=== PATIENT | female | born 1980 | race Caucasian/White ===

== ENCOUNTER → 2018-11-02 | Outpatient (CLI) | payer BC ==
--- NOTE | 2018-11-06 09:30 | MM ---
Reason for exam: screening (asymptomatic). Last mammogram was performed 2 years and 4 months ago. History: Patient is nulliparous. Took hormonal contraceptives for 7 years beginning at age 18. Physical Findings: A clinical breast exam by your physician is recommended on an annual basis and results should be correlated with mammographic findings. MG 3D Screening Mammo W/Cad Bilateral CC and MLO view(s) were taken. Prior study comparison: June 20, 2016, bilateral MG 3d diag mammo w/cad SAM. The breast tissue is heterogeneously dense. This may lower the sensitivity of mammography. No significant changes when compared with prior studies. ASSESSMENT: Benign, BI-RAD 2 RECOMMENDATION: Routine screening mammogram of both breasts at age 41.
== END | disposition home or self-care (01) ==
LOC: RADMAMWWP 13:28
PROVIDERS: ATTEND Obstetrics & Gynecology
DX: Z12.31 Encounter for screening mammogram for malignant neoplasm of breast (principal)
CPT/HCPCS: 77063; 77067

== ENCOUNTER → 2020-11-20 | Outpatient (CLI) | payer BC ==
--- NOTE | 2020-11-23 11:35 | MM ---
Reason for exam: screening (asymptomatic). Last mammogram was performed 2 years and 1 month ago. History: Patient is nulliparous. Took hormonal contraceptives for 7 years beginning at age 18. Physical Findings: A clinical breast exam by your physician is recommended on an annual basis and results should be correlated with mammographic findings. MG 3D Screening Mammo W/Cad Bilateral CC and MLO view(s) were taken. Prior study comparison: November 02, 2018, bilateral MG 3d screening mammo w/cad. June 20, 2016, bilateral MG 3d diag mammo w/cad SAM. The breast tissue is heterogeneously dense. This may lower the sensitivity of mammography. Focal asymmetry upper central left breast zone C. This finding is changed when compared with previous exams. ASSESSMENT: Incomplete: need additional imaging evaluation, BI-RAD 0 RECOMMENDATION: Special view mammogram of the left breast. If lesion persists on supplemental views, image directed ultrasound is recommended. [facility] will attempt to contact patient to return for supplemental views and ultrasound if indicated.
== END | disposition home or self-care (01) ==
LOC: RADMAMWWP 08:50
PROVIDERS: ATTEND Obstetrics & Gynecology
DX: Z12.31 Encounter for screening mammogram for malignant neoplasm of breast (principal)
CPT/HCPCS: 77063; 77067

== ENCOUNTER → 2020-11-25 | Outpatient (CLI) | payer BC ==
--- NOTE | 2020-11-25 10:50 | MM ---
Reason for exam: additional evaluation requested from abnormal screening. Last mammogram was performed less than 1 month ago. History: Patient is nulliparous. Took hormonal contraceptives for 7 years beginning at age 18. Physical Findings: Nurse did not find any significant physical abnormalities on exam. MG 3D Work Up W/Cad LT Spot compression CC, spot compression MLO, and ML view(s) were taken of the left breast. Prior study comparison: November 20, 2020, bilateral MG 3d screening mammo w/cad. November 02, 2018, bilateral MG 3d screening mammo w/cad. There is no discrete abnormality including area of concern including area of concern. These results were verbally communicated with the patient and result sheet given to the patient on 11/25/20. ASSESSMENT: Probably benign, BI-RAD 3 RECOMMENDATION: Follow-up diagnostic mammogram of the left breast in 6 months.
== END | disposition home or self-care (01) ==
LOC: RADMAMWWP 08:56
PROVIDERS: ATTEND Obstetrics & Gynecology
DX: R92.2 Inconclusive mammogram (principal)
CPT/HCPCS: 77061; 77065

== ENCOUNTER → 2021-04-06 | Outpatient (CLI) | payer BC | END | disposition home or self-care (01) | LOC: LABWHC1 10:44 | PROVIDERS: ATTEND Otolaryngology | DX: J30.89 Other allergic rhinitis (principal) | CPT/HCPCS: 36415 ==

== ENCOUNTER → 2021-05-26 | Outpatient (CLI) | payer BC ==
--- NOTE | 2021-05-27 12:21 | MM ---
Reason for exam: follow-up at short interval from prior study. Last mammogram was performed 6 months ago. History: Patient is nulliparous. Took hormonal contraceptives for 7 years beginning at age 18. Physical Findings: Nurse did not find any significant physical abnormalities on exam. MG 3D Diag Mammo W/Cad LT CC and MLO view(s) were taken of the left breast. Prior study comparison: November 25, 2020, left breast MG 3d work up w/cad LT. November 20, 2020, bilateral MG 3d screening mammo w/cad. November 02, 2018, bilateral MG 3d screening mammo w/cad. June 20, 2016, bilateral MG 3d diag mammo w/cad SAM. The breast tissue is heterogeneously dense. This may lower the sensitivity of mammography. Central posterior asymmetric density unchanged for 6 months. Continued follow up recommended. These results were verbally communicated with the patient and result sheet given to the patient on 05/26/21. ASSESSMENT: Probably benign, BI-RAD 3 RECOMMENDATION: Follow-up diagnostic mammogram of both breasts in 6 months.
== END | disposition home or self-care (01) ==
LOC: RADMAMWWP 14:25
PROVIDERS: ATTEND Obstetrics & Gynecology
DX: R92.2 Inconclusive mammogram (principal)
CPT/HCPCS: 77061; 77065

== ENCOUNTER → 2021-12-15 | Outpatient (CLI) | payer BC ==
--- NOTE | 2021-12-15 14:39 | MM ---
Reason for Exam: Follow-up at short interval from prior study. Last mammogram was performed 1 year(s) and 1 month(s) ago. Patient History: Menarche at age 12. Patient has no children. Hormonal Contraceptives for 7 years from age 18 until age 25. Last menstrual period: 12/15/2021 Risk Values: Rosa Isela 5 year model risk: 0.7%. NCI Lifetime model risk: 12.1%. Prior Study Comparison: 11/02/2018 Bilateral Screening Mammogram, [facility]. 11/20/2020 Bilateral Screening Mammogram, [facility]. 11/25/2020 Left Diagnostic Mammogram, [facility]. 05/26/2021 Left Diagnostic Mammogram, [facility]. Tissue Density: The breast tissue is heterogeneously dense. This may lower the sensitivity of mammography. Findings: Analyzed By CAD. No evidence of architectural distortion or dominant mass. No suspicious grouped calcifications. Benign-appearing calcifications noted. Overall Assessment: Benign, BI-RAD 2 Management: Screening Mammogram of both breasts in 1 year. A clinical breast exam by your physician is recommended on an annual basis and results should be correlated with mammographic findings. This exam should not preclude additional follow-up of suspicious palpable abnormalities. Results were given to the patient verbally at the time of exam. Electronically signed and approved by: Ramírez Gonzalez M.D. Radiologis
== END | disposition home or self-care (01) ==
LOC: RADMAMWWP 14:05
PROVIDERS: ATTEND Obstetrics & Gynecology
DX: R92.1 Mammographic calcification found on diagnostic imaging of breast (principal)
CPT/HCPCS: 77062; 77066

== ENCOUNTER 2024-10-15 09:32 | Emergency (ER) | payer BC ==
[2024-10-15 10:12] LABS: Basophils # (A) 0.1 k/uL (0-0.2); Basophils % (A) 1 %; Eosinophils # (A) 0.1 k/uL (0-0.7); Eosinophils % (A) 2 %; HCT 44.4 % (34.0-46.0); HGB 14.4 gm/dL (11.4-16.0); Lymphocytes # (A) 1.2 k/uL (1.0-4.8); Lymphocytes % (A) 22 %; MCH 28.1 pg (25.0-35.0); MCHC 32.4 g/dL (31.0-37.0); MCV 86.6 fL (80.0-100.0); Mean Platelet Volume 7.8; Monocytes # (A) 0.3 k/uL (0-1.0); Monocytes % (A) 5 %; Neutrophils # (A) 3.8 k/uL (1.3-7.7); Neutrophils % (A) 68 %; Platelet Count 350 k/uL (150-450); RBC 5.13 m/uL (3.80-5.40); RDW 13.6 % (11.5-15.5); WBC 5.5 k/uL (3.8-10.6)
[2024-10-15 10:16] LABS: ALT 20 U/L (4-34); AST 21 U/L (14-36); African American GFR (CKD) >90 (>60 ml/min/1.73 sqM); Albumin 4.7 g/dL (3.5-5.0); Alkaline Phosphatase 43 U/L (38-126); Anion Gap 10 mmol/L; Blood Urea Nitrogen 12 mg/dL (7-17); Calcium 9.7 mg/dL (8.4-10.2); Carbon Dioxide 26 mmol/L (22-30); Chloride 101 mmol/L (98-107); Glucose 98 mg/dL (74-99); Magnesium 1.7 mg/dL (1.6-2.3); Non-African American GFR(CKD) >90 (>60 ml/min/1.73 sqM); Potassium 4.5 mmol/L (3.5-5.1); Sodium 137 mmol/L (137-145); Total Bilirubin 0.3 mg/dL (0.2-1.3); Total Protein 7.4 g/dL (6.3-8.2)
[2024-10-15 10:28] LABS: INR 0.9 (<1.2); Partial Thromboplastin Time 22.2 sec (22.0-30.0); Prothrombin Time 10.5 sec (10.0-12.5)
--- NOTE | 2024-10-15 10:29 | XR ---
EXAMINATION TYPE: XR chest 2V DATE OF EXAM: 10/15/2024 CLINICAL INDICATION: Female, 44 years old with history of Chest Pain, TECHNIQUE: Frontal and lateral views of the chest are obtained. COMPARISON: None FINDINGS: Overlying EKG leads are present. There is no focal air space opacity, pleural effusion, or pneumothorax seen. The cardiac silhouette size is within normal limits. The osseous structures ar e intact. IMPRESSION: No acute process. [facility], , 10/15/2024 10:26 AM
[2024-10-15 11:05] VITALS: TEMP 98
--- NOTE | 2024-10-15 12:10 | ED ---
Chest Pain HPI - General Chief Complaint: Chest Pain Stated Complaint: chest pain,palpitations Time Seen by Provider: 10/15/24 09:37 Source: patient, RN notes reviewed Mode of arrival: ambulatory Limitations: no limitations - History of Present Illness Initial Comments: 44-year-old female presents emergency department chief complaint of palpitations. Patient states has been having on and off symptoms. Patient states that she is not having complaints of chest pain at this time denies any prior cardiac disease does have some family history patient has any shortness of breath no headache or dizziness. Patient offers no other complaints. Patient does admit that she is currently dieting and is concerned about possible episodic imbalance, dehydration. - Related Data Home Medications Medication Instructions Recorded Confirmed Cetirizine HCl [Zyrtec] 10 mg PO DAILY 10/15/24 10/15/24 Cholecalciferol [Vitamin D3 (125 125 mcg PO DAILY 10/15/24 10/15/24 Mcg = 5000 Iu)] Fluticasone Nasal Ozone [Flonase 2 spray EA NOSTRIL DAILY 10/15/24 10/15/24 Nasal Ozone] buPROPion XL [Wellbutrin XL] 300 mg PO DAILY 10/15/24 10/15/24 Allergies Allergy/AdvReac Type Severity Reaction Status Date / Time Sulfa (Sulfonamide Allergy Rash/Hives Verified 10/15/24 10:36 Antibiotics) sulfamethoxazole Allergy Rash/Hives Verified 10/15/24 10:36 [From Bactrim] trimethoprim [From Bactrim] Allergy Rash/Hives Verified 10/15/24 10:36 Review of Systems ROS Statement: Those systems with pertinent positive or pertinent negative responses have been documented in the HPI. ROS Other: All systems not noted in ROS Statement are negative. EKG Findings - EKG Comments: EKG Findings:: Rate sinus rhythm rate of 86 AR 152 QRS 85 QT/QTc 333/373 - EKG Results: EKG: interpreted by [facility] Past Medical History Past Medical History: No Reported History History of Any Multi-Drug Resistant Organisms: None Reported Past Surgical History: No Surgical Hx Reported Past Psychological History: Anxiety Smoking Status: Former smoker Past Alcohol Use History: None Reported Past Drug Use History: None Reported General Exam Limitations: no limitations General appearance: alert, in no apparent distress Head exam: Present: atraumatic, normocephalic, normal inspection Eye exam: Present: normal appearance, PERRL, EOMI. Absent: scleral icterus, conjunctival injection, periorbital swelling ENT exam: Present: normal exam, normal oropharynx, mucous membranes moist Neck exam: Present: normal inspection, full ROM. Absent: tenderness, meningismus, lymphadenopathy Respiratory exam: Present: normal lung sounds bilaterally. Absent: respiratory distress, wheezes, rales, rhonchi, stridor Cardiovascular Exam: Present: regular rate, normal rhythm, normal heart sounds. Absent: systolic murmur, diastolic murmur, rubs, gallop, clicks Course Vital Signs 10/15/24 10/15/24 10/15/24 09:40 10:12 11:00 Temperature 98.4 F 98 F Pulse Rate 83 82 Pulse Rate [ 82 Apical] Respiratory 20 16 Rate Blood Pressure 151/84 120/90 O2 Sat by Pulse 99 99 Oximetry 10/15/24 10/15/24 11:35 12:36 Temperature Pulse Rate 74 92 Pulse Rate [ Apical] Respiratory 20 16 Rate Blood Pressure 137/108 124/92 O2 Sat by Pulse 99 99 Oximetry Chest Pain MDM - MDM Was pt. sent in by a medical professional or institution (, PA, BILLING REP, urgent care, hospital, or care home...) When possible be specific @ -No Did you speak to anyone other than the patient for history (EMS, parent, family, police, friend...)? What history was obtained from this source @ -No Did you review nursing and triage notes (agree or disagree)? Why? @ -I reviewed and agree with nursing and triage notes Were old charts reviewed (outside hosp., previous admission, EMS record, old EKG, old radiological studies, urgent care reports/EKG's, care home records)? Report findings @ -No old charts were reviewed Differential Diagnosis (chest pain, altered mental status, abdominal pain women, abdominal pain men, vaginal bleeding, weakness, fever, dyspnea, syncope, headache, dizziness, GI bleed, back pain, seizure, CVA, palpatations, mental health, musculoskeletal)? @ -Differential Chest Pain: Stable Angina, Unstable Angina, STEMI, NSTEMI Aortic Dissection, Pneumothorax, Musculoskeletal, Esophageal Spasm GERD, Cholecystitis, Pancreatitis, Zoster, this is not meant to be an all-inclusive list. Differential Palpitations Ventricular arrhythmias, atrial arrhythmias, myocardial infarction, anemia, thyrotoxicosis, electrolyte imbalance, hypokalemia, pulmonary embolism, pulmonary disease, drugs, alcohol, anxiety, stress.... This is not meant to be an all-inclusive list. EKG interpreted by me (3pts min.). @ -As above X-rays interpreted by me (1pt min.). @ -[Chest x-ray shows no acute cardiopulmonary process. CT interpreted by me (1pt min.). @ -None done U/S interpreted by me (1pt. min.). @ -None done What testing was considered but not performed or refused? (CT, X-rays, U/S, labs)? Why? @ -None What meds were considered but not given or refused? Why? @ -None Did you discuss the management of the patient with other professionals (professionals i.e. , PA, BILLING REP, lab, RT, psych nurse, executive secretary social welfare, java web services developer, teacher, command center officer, director of casework)? Give summary @ -No Was smoking cessation discussed for >3mins.? @ -No Was critical care preformed (if so, how long)? @ -No Were there social determinants of health that impacted care today? How? (Homelessness, low income, unemployed, alcoholism, drug addiction, transportation, low edu. Level, literacy, decrease access to med. care, retirement, rehab)? @ -No Was there de-escalation of care discussed even if they declined (Discuss DNR or withdrawal of care, Hospice)? DNR status @ -No What co-morbidities impacted this encounter? (DM, HTN, Smoking, COPD, CAD, Cancer, CVA, ARF, Chemo, Hep., AIDS, mental health diagnosis, sleep apnea, morbid obesity)? @ -None Was patient admitted / discharged? Hospital course, mention meds given and route, prescriptions, significant lab abnormalities, going to OR and other pertinent info. @ -[Discharge patient presented for palpitations. Workup including labs, EKG chest x-ray are unremarkable. Patient has negative troponin x 2 she has no complaints of chest pain. Patient will follow-up with PCP return for as discussed. Undiagnosed new problem with uncertain prognosis? @ -No Drug Therapy requiring intensive monitoring for toxicity (Heparin, Nitro, Insulin, Cardizem)? @ -No Were any procedures done? @ -No Diagnosis/symptom? @ -Palpitations Acute, or Chronic, or Acute on Chronic? @ -Acute Uncomplicated (without systemic symptoms) or Complicated (systemic symptoms)? @ -complicated Side effects of treatment? @ -No Exacerbation, Progression, or Severe Exacerbation? @ -No Poses a threat to life or bodily function? How? (Chest pain, [place], [place], pneumonia, PE, COPD, DKA, ARF, appy, cholecystitis, CVA, Diverticulitis, Homicidal, Suicidal, threat to staff... and all critical care pts) @ -No Disposition Clinical Impression: Palpitations, Atypical chest pain Disposition: HOME SELF-CARE Condition: Stable Instructions (If sedation given, give patient instructions): Chest Pain (ED) Additional Instructions: Please return to the Emergency Department if symptoms worsen or any other concerns. Is patient prescribed a controlled substance at d/c from ED?: No Referrals: Alan Ross MD [Primary Care Provider] - 1-2 days Time of Disposition: 12:10
[2024-10-15 12:37] VITALS: BP 124/92; PULSE 92; RESP 16
== END 2024-10-15 12:43 | disposition home or self-care (01) ==
LOC: EC 09:32
DX: R00.2 Palpitations (principal); R07.89 Other chest pain; Z88.2 Allergy status to sulfonamides; Z88.1 Allergy status to other antibiotic agents; Z87.891 Personal history of nicotine dependence
CPT/HCPCS: 36415; 71046; 80053; 83735; 84484; 85025; 85379; 85610; 85730; 93005; 99285

== ENCOUNTER 2024-10-19 22:47 | Observation (INO) | payer BC ==
--- NOTE | 2024-10-19 23:19 | ED ---
General Adult HPI - General Chief complaint: Arrhythmia/Palpitations Stated complaint: Heart palpitations Time Seen by Provider: 10/19/24 22:50 Source: patient, RN notes reviewed, old records reviewed Mode of arrival: ambulatory Limitations: no limitations - History of Present Illness Initial comments: 44 female presents for reevaluation of palpitations, racing heart sensation, left-sided chest pain and dyspnea. Symptoms have been present for the past 5 days. Patient has been seen in the emergency department and seen by her primary care provider. She has no prior history of hypertension but states that her blood pressure has been elevated this week. She reports palpitations with associated dyspnea. She does have a left-sided chest pain as well. She denies any vomiting. No abdominal pain. No diarrhea. No fever. - Related Data Home Medications Medication Instructions Recorded Confirmed Cetirizine HCl [Zyrtec] 10 mg PO DAILY 10/15/24 10/15/24 Cholecalciferol [Vitamin D3 (125 125 mcg PO DAILY 10/15/24 10/15/24 Mcg = 5000 Iu)] Fluticasone Nasal [place] [Flonase 2 spray EA NOSTRIL DAILY 10/15/24 10/15/24 Nasal [place]] buPROPion XL [Wellbutrin XL] 300 mg PO DAILY 10/15/24 10/15/24 Allergies Allergy/AdvReac Type Severity Reaction Status Date / Time Sulfa (Sulfonamide Allergy Rash/Hives Verified 10/19/24 22:50 Antibiotics) sulfamethoxazole Allergy Rash/Hives Verified 10/19/24 22:50 [From Bactrim] trimethoprim [From Bactrim] Allergy Rash/Hives Verified 10/19/24 22:50 Review of Systems ROS Statement: Those systems with pertinent positive or pertinent negative responses have been documented in the HPI. ROS Other: All systems not noted in ROS Statement are negative. Past Medical History Past Medical History: No Reported History History of Any Multi-Drug Resistant Organisms: None Reported Past Surgical History: No Surgical Hx Reported Past Psychological History: Anxiety Smoking Status: Former smoker Past Alcohol Use History: None Reported Past Drug Use History: None Reported General Exam Limitations: no limitations General appearance: alert, in no apparent distress Head exam: Present: atraumatic, normocephalic Eye exam: Present: normal appearance, PERRL ENT exam: Present: normal exam Neck exam: Present: normal inspection. Absent: tenderness, meningismus Respiratory exam: Present: normal lung sounds bilaterally. Absent: respiratory distress, wheezes Cardiovascular Exam: Present: normal rhythm, tachycardia GI/Abdominal exam: Present: soft. Absent: distended, tenderness, guarding Extremities exam: Present: normal inspection, normal capillary refill. Absent: calf tenderness Neurological exam: Present: alert, oriented X3, CN II-XII intact. Absent: motor sensory deficit Psychiatric exam: Present: normal affect, normal mood Skin exam: Present: warm, dry, intact Course Vital Signs 10/19/24 10/19/24 10/19/24 22:48 23:07 23:29 Temperature 98.1 F 99.1 F Pulse Rate 136 H 128 H 110 H Respiratory 20 22 18 Rate Blood Pressure 182/136 149/103 134/98 O2 Sat by Pulse 99 100 98 Oximetry Medical Decision Making - Medical Decision Making Was pt. sent in by a medical professional or institution (, PA, CREASING MACHINE OPERATOR, urgent care, hospital, or retirement...) When possible be specific @ -No Did you speak to anyone other than the patient for history (EMS, parent, family, police, friend...)? What history was obtained from this source @ -No Did you review nursing and triage notes (agree or disagree)? Why? @ -I reviewed and agree with nursing and triage notes Were old charts reviewed (outside hosp., previous admission, EMS record, old EKG, old radiological studies, urgent care reports/EKG's, retirement records)? Report findings @ -No old charts were reviewed Differential Palpitations Ventricular arrhythmias, atrial arrhythmias, myocardial infarction, anemia, thyrotoxicosis, electrolyte imbalance, hypokalemia, pulmonary embolism, pulmonary disease, drugs, alcohol, anxiety, stress.... This is not meant to be an all-inclusive list. EKG interpreted by me (3pts min.). @ -Sinus tachycardia rate of 127, IN interval 164, QRS duration 93, QTc [address] segment elevation. X-rays interpreted by me (1pt min.). @ -None done CT interpreted by me (1pt min.). @ -CT angiogram negative for central pulmonary embolism, nondiagnostic for peripheral PE U/S interpreted by me (1pt. min.). @ -None done What testing was considered but not performed or refused? (CT, X-rays, U/S, labs)? Why? @ -None What meds were considered but not given or refused? Why? @ -None Did you discuss the management of the patient with other professionals (professionals i.e. , PA, CREASING MACHINE OPERATOR, lab, RT, psych nurse, social research assistant, probate lawyer, teacher, executive vice president and chief financial officer, bilingual patient support caseworker)? Give summary @Dr. Charles Was smoking cessation discussed for >3mins.? @ -No Was critical care preformed (if so, how long)? @ -No Were there social determinants of health that impacted care today? How? (Homelessness, low income, unemployed, alcoholism, drug addiction, transportation, low edu. Level, literacy, decrease access to med. care, custodial, rehab)? @ -No Was there de-escalation of care discussed even if they declined (Discuss DNR or withdrawal of care, Hospice)? DNR status @ -No What co-morbidities impacted this encounter? (DM, HTN, Smoking, COPD, CAD, Cancer, CVA, ARF, Chemo, Hep., AIDS, mental health diagnosis, sleep apnea, morbid obesity)? @ -None Was patient admitted / discharged? Hospital course, mention meds given and route, prescriptions, significant lab abnormalities, going to OR and other pertinent info. @ -[44-year-old woman presenting for reevaluation of palpitation, tachycardia chest pain. Patient had workup performed earlier in the week which was unremarkable. She was hypertensive and tachycardic at that time. She returns this evening for evaluation of same symptoms. She has a left-sided chest pain, palpitation and associated dyspnea. EKG is sinus tachycardia. I did perform CT angiography to rule out pulmonary embolism in the emergency department. CBC, CMP, troponin and thyroid studies are unremarkable. Patient remains symptomatic she will be observed on telemetry, echo has been ordered, serial cardiac enzymes ordered and cardiology consultation. Undiagnosed new problem with uncertain prognosis? @ -No Drug Therapy requiring intensive monitoring for toxicity (Heparin, Nitro, Insuli n, Cardizem)? @ -No Were any procedures done? @ -No Diagnosis/symptom? @ -Chest pain, palpitations Acute, or Chronic, or Acute on Chronic? @ -Acute Uncomplicated (without systemic symptoms) or Complicated (systemic symptoms)? @ -Default Side effects of treatment? @ -No Exacerbation, Progression, or Severe Exacerbation? @ -No Poses a threat to life or bodily function? How? (Chest pain, [place], [place], pneumonia, PE, COPD, DKA, ARF, appy, cholecystitis, CVA, Diverticulitis, Homicidal, Suicidal, threat to staff... and all critical care pts) @ -Yes, chest pain, arrhythmia - Lab Data Result diagrams: 10/19/24 23:00 10/19/24 23:00 Lab Results 10/19/24 10/19/24 10/19/24 Range/Units 23:00 23:00 23:00 WBC 10.0 (3.8-10.6) k/uL RBC 4.93 (3.80-5.40) m/uL Hgb 14.1 (11.4-16.0) gm/dL Hct 42.2 (34.0-46.0) % MCV 85.6 (80.0-100.0) fL MCH 28.6 (25.0-35.0) pg MCHC 33.4 (31.0-37.0) g/dL RDW 13.6 (11.5-15.5) % Plt Count 336 (150-450) k/uL MPV 7.7 Neutrophils % 72 % Lymphocytes % 19 % Monocytes % 5 % Eosinophils % 2 % Basophils % 0 % Neutrophils # 7.1 (1.3-7.7) k/uL Lymphocytes # 1.9 (1.0-4.8) k/uL Monocytes # 0.5 (0-1.0) k/uL Eosinophils # 0.2 (0-0.7) k/uL Basophils # 0.0 (0-0.2) k/uL PT 10.8 (10.0-12.5) sec INR 1.0 (<1.2) APTT 22.4 (22.0-30.0) sec Sodium 138 (137-145) mmol/L Potassium 3.9 (3.5-5.1) mmol/L Chloride 103 (98-107) mmol/L Carbon Dioxide 23 (22-30) mmol/L Anion Gap 12 mmol/L BUN 15 (7-17) mg/dL Creatinine 0.78 (0.52-1.04) mg/dL Est GFR (CKD-EPI)AfAm >90 (>60 ml/min/1.73 sqM) Est GFR (CKD-EPI)NonAf >90 (>60 ml/min/1.73 sqM) Glucose 102 H (74-99) mg/dL Calcium 10.1 (8.4-10.2) mg/dL Magnesium 1.9 (1.6-2.3) mg/dL Total Bilirubin 0.5 (0.2-1.3) mg/dL AST 21 (14-36) U/L ALT 18 (4-34) U/L Alkaline Phosphatase 52 (38-126) U/L Troponin I (0.000-0.034) ng/mL Total Protein 7.7 (6.3-8.2) g/dL Albumin 4.9 (3.5-5.0) g/dL TSH 4.580 (0.465-4.680) mIU/L Urine Color Urine Appearance (Clear) Urine pH (5.0-8.0) Ur Specific [place] (1.001-1.035) Urine Protein (Negative) Urine Glucose (UA) (Negative) Urine Ketones (Negative) Urine Blood (Negative) Urine Nitrite (Negative) Urine Bilirubin (Negative) Urine Urobilinogen (<2.0) mg/dL Ur Leukocyte Esterase (Negative) Urine RBC (0-5) /hpf Urine WBC (0-5) /hpf Ur Squamous Epith Cells (0-4) /hpf Urine Bacteria (None) /hpf Hyaline Casts (0-2) /lpf Urine Mucus (None) /hpf Urine Yeast (Budding) (None) /hpf Influenza Type A (PCR) (Not Detectd) Influenza Type B (PCR) (Not Detectd) RSV (PCR) (Not Detectd) SARS-CoV-2 (PCR) (Not Detectd) 10/19/24 10/19/24 10/19/24 Range/Units 23:00 23:23 23:30 WBC (3.8-10.6) k/uL RBC (3.80-5.40) m/uL Hgb (11.4-16.0) gm/dL Hct (34.0-46.0) % MCV (80.0-100.0) fL MCH (25.0-35.0) pg MCHC (31.0-37.0) g/dL RDW (11.5-15.5) % Plt Count (150-450) k/uL MPV Neutrophils % % Lymphocytes % % Monocytes % % Eosinophils % % Basophils % % Neutrophils # (1.3-7.7) k/uL Lymphocytes # (1.0-4.8) k/uL Monocytes # (0-1.0) k/uL Eosinophils # (0-0.7) k/uL Basophils # (0-0.2) k/uL PT (10.0-12.5) sec INR (<1.2) APTT (22.0-30.0) sec Sodium (137-145) mmol/L Potassium (3.5-5.1) mmol/L Chloride (98-107) mmol/L Carbon Dioxide (22-30) mmol/L Anion Gap mmol/L BUN (7-17) mg/dL Creatinine (0.52-1.04) mg/dL Est GFR (CKD-EPI)AfAm (>60 ml/min/1.73 sqM) Est GFR (CKD-EPI)NonAf (>60 ml/min/1.73 sqM) Glucose (74-99) mg/dL Calcium (8.4-10.2) mg/dL Magnesium (1.6-2.3) mg/dL Total Bilirubin (0.2-1.3) mg/dL AST (14-36) U/L ALT (4-34) U/L Alkaline Phosphatase (38-126) U/L Troponin I <0.012 (0.000-0.034) ng/mL Total Protein (6.3-8.2) g/dL Albumin (3.5-5.0) g/dL TSH (0.465-4.680) mIU/L Urine Color Light Yellow Urine Appearance Clear (Clear) Urine pH 6.5 (5.0-8.0) Ur Specific [place] 1.019 (1.001-1.035) Urine Protein Negative (Negative) Urine Glucose (UA) Negative (Negative) Urine Ketones Negative (Negative) Urine Blood Trace H (Negative) Urine Nitrite Negative (Negative) Urine Bilirubin Negative (Negative) Urine Urobilinogen <2.0 (<2.0) mg/dL Ur Leukocyte Esterase Negative (Negative) Urine RBC 1 (0-5) /hpf Urine WBC 4 (0-5) /hpf Ur Squamous Epith Cells 2 (0-4) /hpf Urine Bacteria Occasional H (None) /hpf Hyaline Casts 4 H (0-2) /lpf Urine Mucus Rare H (None) /hpf Urine Yeast (Budding) Rare H (None) /hpf Influenza Type A (PCR) Not Detected (Not Detectd) Influenza Type B (PCR) Not Detected (Not Detectd) RSV (PCR) Not Detected (Not Detectd) SARS-CoV-2 (PCR) Not Detected (Not Detectd) Disposition Clinical Impression: Tachycardia, Chest pain Disposition: ADMITTED IP TO THIS HOSP Condition: Stable Is patient prescribed a controlled substance at d/c from ED?: No Referrals: Alan Ross MD [Primary Care Provider] - 1-2 days Time of Disposition: 01:11
[2024-10-19 23:24] LABS: Basophils % (A) 0 %; Eosinophils # (A) 0.2 k/uL (0-0.7); Eosinophils % (A) 2 %; HCT 42.2 % (34.0-46.0); HGB 14.1 gm/dL (11.4-16.0); Lymphocytes # (A) 1.9 k/uL (1.0-4.8); Lymphocytes % (A) 19 %; MCH 28.6 pg (25.0-35.0); MCHC 33.4 g/dL (31.0-37.0); MCV 85.6 fL (80.0-100.0); Mean Platelet Volume 7.7; Monocytes # (A) 0.5 k/uL (0-1.0); Monocytes % (A) 5 %; Neutrophils # (A) 7.1 k/uL (1.3-7.7); Neutrophils % (A) 72 %; Platelet Count 336 k/uL (150-450); RBC 4.93 m/uL (3.80-5.40); RDW 13.6 % (11.5-15.5)
[2024-10-19 23:26] LABS: Partial Thromboplastin Time 22.4 sec (22.0-30.0); Prothrombin Time 10.8 sec (10.0-12.5)
[2024-10-19] MEDS: SODIUM CHLORIDE 0.9% 1,000 ML IV STA (23:27)
[2024-10-19 23:28] LABS: ALT 18 U/L (4-34); AST 21 U/L (14-36); African American GFR (CKD) >90 (>60 ml/min/1.73 sqM); Albumin 4.9 g/dL (3.5-5.0); Alkaline Phosphatase 52 U/L (38-126); Anion Gap 12 mmol/L; Blood Urea Nitrogen 15 mg/dL (7-17); Calcium 10.1 mg/dL (8.4-10.2); Carbon Dioxide 23 mmol/L (22-30); Chloride 103 mmol/L (98-107); Glucose 102 mg/dL (74-99); Magnesium 1.9 mg/dL (1.6-2.3); Non-African American GFR(CKD) >90 (>60 ml/min/1.73 sqM); Potassium 3.9 mmol/L (3.5-5.1); Sodium 138 mmol/L (137-145); Total Bilirubin 0.5 mg/dL (0.2-1.3); Total Protein 7.7 g/dL (6.3-8.2)
[2024-10-19 23:40] LABS: Appearance,Urine Clear (Clear); Bacteria,Urine Occasional /hpf; Bilirubin,Urine Negative (Negative); Blood,Urine Trace (Negative); Budding Yeast,Urine Rare /hpf; Color,Urine Light Yellow; Glucose,Urine (UA) Negative (Negative); Hyaline Casts,Urine 4 /lpf (0-2); Ketones,Urine Negative (Negative); Leukocyte Esterase,Urine Negative (Negative); Mucus,Urine Rare /hpf; Nitrite,Urine Negative (Negative); PH, Urine 6.5 (5.0-8.0); Protein,Urine Negative (Negative); RBC,Urine 1 /hpf (0-5); Specific Gravity,Urine 1.019 (1.001-1.035); Squamous Epithelial Cell,Urine 2 /hpf (0-4); Urobilinogen,Urine <2.0 mg/dL (<2.0); WBC,Urine 4 /hpf (0-5)
[2024-10-20 00:20] LABS: Influenza A Not Detected (Not Detectd); Influenza B Not Detected (Not Detectd); RSV Not Detected (Not Detectd)
--- NOTE | 2024-10-20 00:45 | CT ---
EXAM: CT Angiography Chest With Intravenous Contrast CLINICAL HISTORY: Pleuritic chest pain, tachycardia TECHNIQUE: Axial computed tomographic angiography images of the chest with intravenous contrast. CTDI is 11.9 mGy and DLP is 318.6 mGy-cm. This CT exam was performed using one or more of the following dose reduction techniques: automated exposure control, adjustment of the mA and/or kV according to patient size, and/or use of iterative reconstruction technique. MIP reconstructed images were created and reviewed. COMPARISON: No relevant prior studies available. FINDINGS: Pulmonary arteries: Suboptimal enhancement of the pulmonary artery tree with faint enhancement pattern. No definite large/central pulmonary emboli. Several distal subsegmental branches are of limited to nondiagnostic quality. Aorta: The thoracic aorta is normal in caliber without dissection or aneurysm. Lungs: Accounting for limitations with mild respiratory artifact, there is no evidence for focal airspace consolidation. Pleural space: Unremarkable. No significant effusion. No pneumothorax. Heart: The cardiac chambers are normal in caliber. The RV/LV ratio is less than 1. No significant pericardial effusion. Bones/joints: No acute fracture. No dislocation. Soft tissues: Unremarkable. Lymph nodes: Unremarkable. No enlarged lymph nodes. IMPRESSION: 1. Suboptimal enhancement of the pulmonary artery tree with faint enhancement pattern. No definite large/central pulmonary emboli. Several distal subsegmental branches are of limited to nondiagnostic quality. No definite CT evidence for right heart strain. 2. Accounting for limitations with mild respiratory artifact, there is no evidence for focal airspace consolidation. No pleural effusion or pneumothorax.
[2024-10-20] MEDS ORDERED: NALOXONE 0.4 MG/ML 1 ML VIAL IV PRN (01:06)
[2024-10-20] MEDS ORDERED: ACETAMINOPHEN TAB 325 MG TAB PO PRN (01:08)
[2024-10-20] MEDS: SODIUM CHLORIDE 0.9% 1,000 ML IV SCH (02:02)
--- NOTE | 2024-10-20 02:08 | P.HPIM ---
History of Present Illness H&P Date: 10/20/24 Chief Complaint: heart palpitations Patient is a 44-year-old female with history of anxiety presenting with heart palpitations, left-sided chest pain and shortness of breath. Patient states heart palpitations started around 5 days ago. Says she also developed some slight left-sided chest pain and went she went to see her PCP last Monday for it. PCP told her to go to ED, and patient ultimately came to this ED that day and was discharged same day. Patient states yesterday while she was lying in bed she felt short of breath and found it difficult to sleep. She says she only feels the shortness of breath when she is lying down flat. Heart palpitations and dyspnea wakes her up at night. She says the chest pain is on the left side by her ribs and describes it as an intermittent pulsating, electric shock type of pain. Patient states pain is relieved with pressure on the side. Patient states she also became diaphoretic as well. Former [id number] smoker that quit 16 years ago. Denies any alcohol or illicit drug use. Patient denies fever, night sweats, headache, abdominal pain, nausea, vomiting, diarrhea, urinary symptoms. EKG independent interpreted displaying sinus tachycardia, rate 127 bpm, QTc 380 ms Chest CTA displaying no evidence of focal airspace consolidation, no pleural effusion or pneumothorax, no definite large/central central pulmonary emboli, no CT evidence of right heart strain T 98.1 F, VT 136, RR 20, BP 182/36, O2 saturation 99% on room air Review of systems: Pertinent positives and negatives as discussed in HPI, a complete review of systems was performed and all other systems are negative. Physical examination: Vital signs reviewed General: non toxic, no distress, appears at stated age Derm: no unusual rashes/lesions, warm Head: atraumatic, normocephalic, symmetric Eyes: EOMI, anicteric sclera, pupils equal round reactive to light ENT: Nose and ears atraumatic Mouth: no lip lesion, mucus membranes moist Cardiovascular: S1S2 reg, no murmur, positive dorsalis pedis pulse bilateral, no edema Lungs: CTA bilateral, no rhonchi, no rales, no accessory muscle use Abdominal: soft, nontender to palpation, no guarding Ext: muscle strength 5 out of 5 in all 4 extremities grossly, no gross muscle atrophy Neuro: CN II-XI grossly intact, no gross focal neuro deficits Psych: Alert, oriented to person, place, and time Assessment/Plan: Patient is a 44-year-old female with history of anxiety presenting with heart palpitations, left-sided chest pain and shortness of breath. ED documentation reviewed. Discussed with the patient. The patient is admitted with an anticipated less than 2 midnight stay for evaluation of acute chest pain. #. Tachycardia #. Heart palpitations #. Acute left-sided chest pain Rule out ACS EKG independent interpreted displaying sinus tachycardia, rate 127 bpm, QTc 380 ms Chest CTA displaying no evidence of focal airspace consolidation, no pleural effusion or pneumothorax, no definite large/central central pulmonary emboli, no CT evidence of right heart strain Troponin < 0.012, continue to trend TSH within normal limit at 4.58 Echocardiogram ordered Cardiac telemetry Cardiology consulted #. Anxiety Continue Wellbutrin 300 mg PO QD Hypertension not currently on any treatment continue to monitor and defer to OP follow up DVT prophylaxis: heparin 5000 unit SQ every 8 hours CODE STATUS: FULL CODE Anticipated discharge place: pending clinical course Salvador Lew MD PGY-1 IM Dictation was produced using [employer] dictation software. please excuse any grammatical, word or spelling errors. Past Medical History Past Medical History: No Reported History History of Any Multi-Drug Resistant Organisms: None Reported Past Surgical History: No Surgical Hx Reported Past Psychological History: Anxiety Smoking Status: Former smoker Past Alcohol Use History: None Reported Past Drug Use History: None Reported Medications and Allergies Home Medications Medication Instructions Recorded Confirmed Type Cetirizine HCl [Zyrtec] 10 mg PO DAILY 10/15/24 10/15/24 History Cholecalciferol [Vitamin D3 (125 125 mcg PO DAILY 10/15/24 10/15/24 History Mcg = 5000 Iu)] Fluticasone Nasal [place] [Flonase 2 spray EA NOSTRIL DAILY 10/15/24 10/15/24 History Nasal [place]] buPROPion XL [Wellbutrin XL] 300 mg PO DAILY 10/15/24 10/15/24 History Allergies Allergy/AdvReac Type Severity Reaction Status Date / Time Sulfa (Sulfonamide Allergy Rash/Hives Verified 10/19/24 22:50 Antibiotics) sulfamethoxazole Allergy Rash/Hives Verified 10/19/24 22:50 [From Bactrim] trimethoprim [From Bactrim] Allergy Rash/Hives Verified 10/19/24 22:50 Physical Exam Vitals: Vital Signs Temp Pulse Resp BP Pulse Ox 10/19/24 23:29 110 H 18 134/98 98 10/19/24 23:07 99.1 F 128 H 22 149/103 100 10/19/24 22:48 98.1 F 136 H 20 182/136 99 Intake and Output 10/19/24 10/19/24 10/20/24 14:59 22:59 06:59 Other: Weight 74.843 kg Results CBC & Chem 7: 10/19/24 23:00 10/19/24 23:00 Labs: Abnormal Lab Results - Last 24 Hours (Table) 10/19/24 10/19/24 Range/Units 23:00 23:30 Glucose 102 H (74-99) mg/dL Urine Blood Trace H (Negative) Urine Bacteria Occasional H (None) /hpf Hyaline Casts 4 H (0-2) /lpf Urine Mucus Rare H (None) /hpf Urine Yeast (Budding) Rare H (None) /hpf
[2024-10-20] MEDS: MELATONIN 5 MG TABLET PO PRN (04:12)
[2024-10-20] MEDS: LORazepam 0.5 MG TAB PO PRN (04:15)
[2024-10-20] MEDS: buPROPion XL 300 MG TAB.ER.24H PO SCH (09:41)
[2024-10-20] MEDS: LORATADINE 10 MG TAB PO SCH (09:41)
[2024-10-20] MEDS: HEPARIN SODIUM,PORCINE 5,000 UNIT/ML 1 ML VIAL SQ SCH (09:42)
[2024-10-20] MEDS: FLUTICASONE NASAL 50MCG/SPRAY 16GM BTL EA NOSTRIL SCH (09:42)
[2024-10-20 11:51] LABS: Basophils % (A) 0 %; Eosinophils # (A) 0.1 k/uL (0-0.7); Eosinophils % (A) 1 %; HCT 38.3 % (34.0-46.0); HGB 12.7 gm/dL (11.4-16.0); Lymphocytes # (A) 1.3 k/uL (1.0-4.8); Lymphocytes % (A) 19 %; MCH 28.7 pg (25.0-35.0); MCHC 33.1 g/dL (31.0-37.0); MCV 86.6 fL (80.0-100.0); Monocytes # (A) 0.4 k/uL (0-1.0); Monocytes % (A) 6 %; Neutrophils # (A) 4.7 k/uL (1.3-7.7); Neutrophils % (A) 72 %; Platelet Count 291 k/uL (150-450); RBC 4.42 m/uL (3.80-5.40); RDW 13.7 % (11.5-15.5); WBC 6.6 k/uL (3.8-10.6)
[2024-10-20 12:02] LABS: African American GFR (CKD) >90 (>60 ml/min/1.73 sqM); Anion Gap 9 mmol/L; Blood Urea Nitrogen 9 mg/dL (7-17); Calcium 9.4 mg/dL (8.4-10.2); Carbon Dioxide 24 mmol/L (22-30); Chloride 103 mmol/L (98-107); Glucose 111 mg/dL (74-99); Magnesium 1.9 mg/dL (1.6-2.3); Non-African American GFR(CKD) >90 (>60 ml/min/1.73 sqM); Potassium 4.4 mmol/L (3.5-5.1); Sodium 136 mmol/L (137-145)
[2024-10-20] MEDS: MAGNESIUM SULFATE-D5W PMX 1 GM in DEXTROSE/WATER 1 100ML.BAG IVPB ONE (12:36)
--- NOTE | 2024-10-20 13:35 | P.PN ---
Subjective Progress Note Date: 10/20/24 Hospital course: Patient is a pleasant 44-year-old female with a past medical history of anxiety and palpitations. She currently has an event monitor in place was ordered by her PCP secondary to reports of palpitations beginning approximately 1 week ago. She presented to the hospital secondary to reports of worsening palpitations accompanied by a pain to her left anterior chest. Upon arrival to our facility, patient underwent evaluation in the emergency department. Vital signs upon arrival show blood pressure 182/136, heart rate 136, respiratory rate 20, temp 98.1 F, and SpO2 of 99% on room air. EKG was completed showing sinus tachycardia at 127 bpm with no significant T wave or ST abnormality showing no signs of acute ischemia upon personal review and interpretation. Labs completed and reviewed. CBC unremarkable. Coagulation profile normal findings. BMP unremarkable. Blood glucose 102. Magnesium 1.9. Liver profile normal findings. Troponin was negative at less than 0.012. TSH also normal findings at 4.580. CTA chest completed reporting no definite large/central pulmonary emboli with several distal subsegmental branches limited to diagnostic quality b ut no definite CT evidence for right heart strain and no evidence for focal airspace consolidation, pleural effusion, or pneumothorax. Patient admitted under our services with consultation to cardiology. Troponins trended overnight all negative at less than 0.012 x 3 draws. Urine hCG negative. Influenza A, influenza B, RSV, and COVID PCR negative. Physical exam: Vital signs reviewed and stable. General: Nontoxic, no distress and appears stated age. Derm: Skin warm and dry, normal coloration for ethnicity. Head: Atraumatic, normocephalic and symmetric. Eyes: EOM's intact, no lid lag, and anicteric sclera Mouth: no lip lesions, mucus membranes moist Cardiovascular: regular rate and rhythm with normal S1S2, no murmur, positive posterior tibial pulses bilaterally, and cap refill < 2 seconds. Lungs: Respirations even, regular, and unlabored on room air. Lungs CTA bilaterally, no rhonchi, no rales, no wheezing, and no accessory muscle usage. Abdominal: soft, nontender to palpation, no guarding, no appreciable organomegaly Ext: ROM intact. No gross muscle atrophy, no edema, no contractures Neuro: Speech clear, face symmetrical and CN II-XII grossly intact with no noted focal neuro deficits Psych: Alert and oriented to person, place, time, and situation. Appropriate and pleasant affect. Assessment and Plan of Care: Palpitations Sinus tachycardia -Cardiology consulted, discussed plan of care with Dr. Suarez. Patient to undergo stress echo tomorrow. -Telemetry monitoring -Troponins trended all negative at less than 0.012 x 3 draws. -Cardiac diet, NPO at midnight -TSH was normal findings at 4.580. Urine hCG negative. -Lipid profile with a.m. labs. -Echocardiogram and stress echo to be completed Anxiety -Continue Wellbutrin 300 mg daily and lorazepam 0.5 mg every 6 hours as needed for anxiety. Data and imaging reviewed: -Labs reviewed. Troponins trended overnight all negative at less than 0.012 x 3 draws. Urine hCG negative. Influenza A, influenza B, RSV, and COVID PCR negative. CBC and BMP remained unremarkable. Magnesium 1.9. -Vital signs reviewed. Blood pressure 127/88, heart rate 108, respiratory rate 18, and SpO2 of 99% on room air. CODE STATUS: Full code DVT prophylaxis: Heparin Discussed with: Patient, patient's family at bedside, RN, and special education associate Anticipated discharge date: Likely tomorrow pending completion of echocardiogram and stress echo Anticipated discharge place: Home Patient was seen independently by Nurse Pracitioner. This document was prepared using [employer] dictation software. Please allow for errors in lean manufacturing leader, while rare they do occur. Isai Stoll NP rendered care for this patient independently, reviewed the findings and plan as documented in the note above and agree with plan. I did not physically speak with or examine the patient on this date. Objective - Vital Signs Vital signs: Vital Signs Temp 99.1 F 10/19/24 23:07 Pulse 96 10/20/24 04:45 Resp 16 10/20/24 04:45 BP 125/84 10/20/24 04:45 Pulse Ox 98 10/20/24 04:45 FiO2 Intake & Output 10/19/24 10/20/24 10/20/24 18:59 06:59 18:59 Weight 74.843 kg - Labs CBC & Chem 7: 10/20/24 11:01 10/20/24 11:01 Labs: Abnormal Lab Results - Last 24 Hours (Table) 10/19/24 10/19/24 Range/Units 23:00 23:30 Glucose 102 H (74-99) mg/dL Urine Blood Trace H (Negative) Urine Bacteria Occasional H (None) /hpf Hyaline Casts 4 H (0-2) /lpf Urine Mucus Rare H (None) /hpf Urine Yeast (Budding) Rare H (None) /hpf
--- NOTE | 2024-10-20 16:56 | P.CRDCN ---
History of Present Illness Consult date: 10/20/24 History of present illness: HISTORY OF PRESENTING ILLNESS: 44-year-old with prior history of anxiety and palpitations. This time she presented to the hospital because of increased worsening substernal chest pressure along with shortness of breath and palpitation like symptoms. She notices these palpitations mostly when she is resting in the nighttime. Her chest pain and shortness of breath started when she was sleeping. Troponins were negative, EKG was nonischemic CTA did not show any evidence of PE or significant coronary calcification. She is wearing a extended Holter monitor from her primary care physician. REVIEW OF SYSTEMS: 14 point review of system is negative except what is mentioned above in HPI. PHYSICAL EXAMINATION: Neck: Brisk carotid upstroke, no jugular venous distention. Lungs: Clear to auscultation. Heart: Regular rate and rhythm, S1-S2, , no murmur or rub. Abdomen: Soft nontender, positive bowel sounds. Extremities: No edema, intact distal pulses. Neuro: Alert, oritented, no focal deficits. Detailed neuro exam was not performed. ASSESSMENT: # Palpitations # Substernal chest pressure # Shortness of breath # Anxiety PLAN: Obtain echocardiogram Obtain treadmill echo stress test Further recommendations to follow Ordered TSH, , lipid panel, HbA1c Brant Suarez MD, FACC, RPVI Thank you for allowing [facility] to participate in this patient's care. Feel free to reach out in case of any followup questions. Past Medical History Past Medical History: No Reported History History of Any Multi-Drug Resistant Organisms: None Reported Past Surgical History: No Surgical Hx Reported Past Psychological History: Anxiety Smoking Status: Former smoker Past Alcohol Use History: None Reported Past Drug Use History: None Reported Medications and Allergies Home Medications Medication Instructions Recorded Confirmed Type Cetirizine HCl [Zyrtec] 10 mg PO DAILY 10/15/24 10/20/24 History Fluticasone Nasal [place] [Flonase 2 spray EA NOSTRIL DAILY 10/15/24 10/20/24 History Nasal [place]] buPROPion XL [Wellbutrin XL] 300 mg PO DAILY 10/15/24 10/20/24 History Allergies Allergy/AdvReac Type Severity Reaction Status Date / Time Sulfa (Sulfonamide Allergy Rash/Hives Verified 10/20/24 09:03 Antibiotics) sulfamethoxazole Allergy Rash/Hives Verified 10/20/24 09:03 [From Bactrim] trimethoprim [From Bactrim] Allergy Rash/Hives Verified 10/20/24 09:03 Physical Exam Vitals: Vital Signs Temp Pulse Pulse Resp BP BP Pulse Ox 10/20/24 14:19 98.7 F 105 H 18 122/83 99 10/20/24 14:00 18 10/20/24 08:30 108 H 10/20/24 07:33 108 H 18 127/88 99 10/20/24 04:45 96 16 125/84 98 10/19/24 23:29 110 H 18 134/98 98 10/19/24 23:07 99.1 F 128 H 22 149/103 100 10/19/24 22:48 98.1 F 136 H 20 182/136 99 Intake and Output 10/20/24 10/20/24 10/20/24 06:59 14:59 22:59 Intake Total 120 Balance 120 Intake: Oral 120 Other: Voiding Method Toilet Weight 74.843 kg Results 10/20/24 11:01 10/20/24 11:01 Cardiac Enzymes 10/19/24 10/19/24 10/20/24 Range/Units 23:00 23:00 03:15 AST 21 (14-36) U/L Troponin I <0.012 <0.012 (0.000-0.034) ng/mL 10/20/24 Range/Units 11:01 AST (14-36) U/L Troponin I <0.012 (0.000-0.034) ng/mL Coagulation 10/19/24 Range/Units 23:00 PT 10.8 (10.0-12.5) sec APTT 22.4 (22.0-30.0) sec CBC 10/19/24 10/20/24 Range/Units 23:00 11:01 WBC 10.0 6.6 (3.8-10.6) k/uL RBC 4.93 4.42 (3.80-5.40) m/uL Hgb 14.1 12.7 (11.4-16.0) gm/dL Hct 42.2 38.3 (34.0-46.0) % Plt Count 336 291 (150-450) k/uL Comprehensive Metabolic Panel 10/19/24 10/20/24 Range/Units 23:00 11:01 Sodium 138 136 L (137-145) mmol/L Potassium 3.9 4.4 (3.5-5.1) mmol/L Chloride 103 103 (98-107) mmol/L Carbon Dioxide 23 24 (22-30) mmol/L BUN 15 9 (7-17) mg/dL Creatinine 0.78 0.65 (0.52-1.04) mg/dL Glucose 102 H 111 H (74-99) mg/dL Calcium 10.1 9.4 (8.4-10.2) mg/dL AST 21 (14-36) U/L ALT 18 (4-34) U/L Alkaline Phosphatase 52 (38-126) U/L Total Protein 7.7 (6.3-8.2) g/dL Albumin 4.9 (3.5-5.0) g/dL Current Medications Generic Name Dose Route Start Last Admin Trade Name Freq PRN Reason Stop Dose Admin Acetaminophen 650 mg 10/20/24 01:08 Acetaminophen Tab 325 Mg Tab PO Q6HR PRN Mild Pain or Fever > 100.5 Bupropion HCl 300 mg 10/20/24 09:00 10/20/24 09:41 Bupropion Xl 300 Mg Tab.Er.24h PO 300 mg DAILY MILLA Administration Fluticasone Propionate 2 spray 10/20/24 09:00 10/20/24 09:42 Fluticasone Nasal 50mcg/[place] 16gm Btl EA NOSTRIL 2 spray DAILY MILLA Administration Heparin Sodium (Porcine) 5,000 unit 10/20/24 08:00 10/20/24 09:42 Heparin Sodium,Porcine 5,000 Unit/Ml 1 Ml Vial SQ 5,000 unit Q8HR MILLA Administration Loratadine 10 mg 10/20/24 09:00 10/20/24 09:41 Loratadine 10 Mg Tab PO 10 mg DAILY MILLA Administration Lorazepam 0.5 mg 10/20/24 01:08 10/20/24 04:15 Lorazepam 0.5 Mg Tab PO 0.5 mg Q6HR PRN Administration Anxiety Melatonin 5 mg 10/20/24 01:58 10/20/24 04:12 Melatonin 5 Mg Tablet PO 5 mg HS PRN Administration Insomnia Naloxone HCl 0.2 mg 10/20/24 01:06 Naloxone 0.4 Mg/Ml 1 Ml Vial IV Q2M PRN Opioid Reversal Intake and Output 10/20/24 10/20/24 10/20/24 06:59 14:59 22:59 Intake Total 120 Balance 120 Intake: Oral 120 Other: Voiding Method Toilet Weight 74.843 kg Patient Weight 10/21/24 06:59 Weight 74.843 kg 10/20/24 11:01 10/20/24 11:01
[2024-10-20 19:27] VITALS: RESP 16
[2024-10-21 06:29] LABS: Chol/HDL Ratio 2.91 Ratio; LDL Cholesterol,Calculated 82.3 mg/dL (0.0-131.0); VLDL Calculation 9.58 mg/dL (5.00-40.00)
--- NOTE | 2024-10-21 11:00 | P.PN ---
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 Patient initially presented to the hospital with chest pain and palpitations. Patient examined this morning to bedside. She denies any further episodes of chest pain or pressure. She denies any shortness of breath. Vital signs are stable. PHYSICAL EXAM: VITAL SIGNS: Reviewed. GENERAL: Well-developed in no acute distress. NECK: Supple. No JVD or thyromegaly LUNGS: Respirations even and unlabored. Lungs essentially clear to auscultation bilaterally. HEART: Regular rate and rhythm. S1 and S2 heard. EXTREMITIES: Normal range of motion. No clubbing or cyanosis. Peripheral pulses intact. No lower extremity edema ASSESSMENT: Chest pain, troponin negative x 3 Palpitations PLAN: 2D echo ordered. Await results. Patient to undergo stress testing this morning. If negative, patient may be discharged home today from a cardiac standpoint Nurse practitioner note has been reviewed by physician. Signing provider agrees with the documented findings, assessment, and plan of care documented by LAWNMOWER REPAIR MECHANIC as a scribe. Objective - Vital Signs Vital signs: Vital Signs Temp 98.3 F 10/21/24 07:20 Pulse 87 10/21/24 07:20 Resp 16 10/21/24 07:20 BP 114/80 10/21/24 07:20 Pulse Ox 100 10/21/24 07:20 FiO2 Intake & Output 10/20/24 10/21/24 10/21/24 18:59 06:59 18:59 Intake Total 120 Balance 120 Weight 74.843 kg Intake: Oral 120 Other: Voiding Method Toilet # Voids 2 - Labs CBC & Chem 7: 10/20/24 11:01 10/20/24 11:01 Labs: Abnormal Lab Results - Last 24 Hours (Table) 10/19/24 10/20/24 Range/Units 23:00 11:01 Sodium 136 L (137-145) mmol/L Glucose 111 H (74-99) mg/dL TSH 4.720 H (0.465-4.680) mIU/L
--- NOTE | 2024-10-21 12:40 | CA ---
Transthoracic Echo Report Name: Delia Moctezuma Age: 44 Gender: F : 1980 Exam Date: 10/21/2024 08:59 Exam Location: [facility] Ht (in): 63 Wt (lb): 165 Ordering Physician: Lm Holly MD Attending/Referring Phys: [id number], [employer] Inventory Clerk Rachel Zhu RDCS Procedure CPT: Indications: cp/dyspnea Cardiac Hx: Technical Quality: Good Contrast 1: Total Dose (mL): Contrast 2: Total Dose (mL): MEASUREMENTS (Male / Female) Normal Values 2D ECHO LV Diastolic Diameter PLAX 4.1 cm 4.2 - 5.9 / 3.9 - 5.3 cm LV Systolic Diameter PLAX 2.2 cm IVS Diastolic Thickness 1.0 cm 0.6 - 1.0 / 0.6 - 0.9 cm LVPW Diastolic Thickness 1.0 cm 0.6 - 1.0 / 0.6 - 0.9 cm LV Relative Wall Thickness 0.5 RV Internal Dim ED PLAX 2.7 cm LA Systolic Diameter LX 3.5 cm 3.0 - 4.0 / 2.7 - 3.8 cm LV Diastolic Volume MOD BP 70.6 cm??? 67 - 155 / 56 - 104 cm??? LV Systolic Volume MOD BP 25.5 cm??? / 19 - 49 cm??? LV Ejection Fraction MOD BP 63.9 % >= 55 % LV Cardiac Index MOD BP 2050.4 cm???/min???m??? LV Diastolic Volume MOD 4C 68.6 cm??? LV Systolic Volume MOD 4C 23.1 cm??? LV Ejection Fraction MOD 4C 66.4 % LV Cardiac Index MOD 4C 2071.9 cm???/min???m??? LV Diastolic Length 4C 7.5 cm LV Systolic Length 4C 5.9 cm LV Diastolic Volume MOD 2C 68.9 cm??? LV Systolic Volume MOD 2C 27.7 cm??? LV Ejection Fraction MOD 2C 59.8 % LV Cardiac Index MOD 2C 1872.9 cm???/min???m??? LV Diastolic Length 2C 7.1 cm LV Systolic Length 2C 6.2 cm LA Volume 43.3 cm??? - / 22 - 52 cm??? LA Volume Index 23.5 cm???/m??? 16 - 28 cm???/m??? M-MODE Aortic Root Diameter MM 2.6 cm LA Systolic Diameter MM 3.6 cm LA Ao Ratio MM 1.4 AV Cusp Separation MM 1.9 cm DOPPLER AI Peak Velocity 231.9 cm/s AI Peak Gradient 21.5 mmHg AI Pressure Half Time 919.0 ms MV Area PHT 3.2 cm??? Mitral E Point Velocity 77.7 cm/s Mitral A Point Velocity 71.8 cm/s Mitral E to A Ratio 1.1 MV Deceleration Time 234.8 ms TR Peak Velocity 212.1 cm/s TR Peak Gradient 18.0 mmHg FINDINGS Left Ventricle Left ventricular ejection fraction is estimated at 55-60 %. Mildly increased septal wall thickness. Mildly increased posterior wall thickness. Normal left ventricular systolic function with no obvious regional wall motion abnormalities. Left ventricular cavity size normal. Right Ventricle Normal right ventricular size and function. Right ventricular systolic pressure within normal limits. Right Atrium Normal right atrial size. Left Atrium Normal left atrial size. Mitral Valve Structurally normal mitral valve. Trace mitral regurgitation. No mitral stenosis. Aortic Valve Trileaflet aortic valve. Trace aortic regurgitation. No aortic stenosis. Tricuspid Valve Structurally normal tricuspid valve. No tricuspid stenosis. Mild tricuspid regurgitation. Pulmonic Valve Structurally normal pulmonic valve. Trace pulmonic regurgitation. No pulmonic stenosis. Pericardium No pericardial or pleural effusion. Aorta Normal size aortic root and proximal ascending aorta. CONCLUSIONS Normal biventricular systolic function No significant valvular abnormalities No pericardial effusion Previewed by: Dr. Shadi Redding MD (Electronically Signed) Final Date: 21 October 2024 12:39
--- NOTE | 2024-10-21 14:03 | CA ---
Stress Echo Report Delia Moctezuma Age: 44 Gender: F : 1980 Exam Date: 10/21/2024 11:51 Exam Location: [facility] Ht (in): 63 Wt (lb): 165 Ordering Physician: Brant Suarez MD ([id number]) Referring Physician: MARGRET,, Rotary Rig Engine Operator: Morelia Womack RDCS Technologist Procedure CPT: Indication: CHEST PAIN/PALPITATIONS ICD-9 Codes: Rhythm: Patient History: DIFFICULTY IN BREATHING, PALPITATIONS, FAMILY HX OF HEART DISEASE, PRIOR SMOKER Cardiac Medications: SEE CHART,,,,, Medications in past 24 hours: Contrast: Stress Results Protocol: Jacob Total dose(mL): Exercise Duration (min:sec): 7:[address] Depression (mm): Angina Score: Way Score: METS: 8.5 Resting HR: 127 Resting BP: 131 / 92 Peak HR: 178 Peak BP: / 97 Max Predicted HR: 177 101 % Max Predicted HR Target HR: 150 Double Product: Stress Summary: BP Response: Reason for Termination: Target HR Cardiac Symptoms: NO SYMPTOMS ECG Analysis Resting ECG: Stress ECG: Arrhythmia: Echo Analysis Resting Echo: Peak Echo Analysis: MEASUREMENTS (Male/Female) Normal Values CONCLUSIONS Normal stress echocardiogram Dr. Shadi Redding MD (Electronically Signed) Final Date: 21 October 2024 14:02
--- NOTE | 2024-10-21 14:43 | P.DS ---
Providers Date of admission: 10/20/24 01:06 Expected date of discharge: 10/21/24 Attending physician: Conchis Charles MD Primary care physician: Alan Ross Hospital Course: Discharge Diagnosis: Palpitations Sinus tachycardia Anxiety. Continue Wellbutrin 300 mg daily and lorazepam 0.5 mg every 6 hours as needed for anxiety. Hospital Course: Patient is a pleasant 44-year-old female with a past medical history of anxiety and palpitations. She currently has an event monitor in place was ordered by her PCP secondary to reports of palpitations beginning approximately 1 week ago. She presented to the hospital secondary to reports of worsening palpitations accompanied by a pain to her left anterior chest. Upon arrival to our facility, patient underwent evaluation in the emergency department. Vital signs upon arrival show blood pressure 182/136, heart rate 136, respiratory rate 20, temp 98.1 F, and SpO2 of 99% on room air. EKG was completed showing sinus tachycardia at 127 bpm with no significant T wave or ST abnormality showing no signs of acute ischemia upon personal review and interpretation. Labs completed and reviewed. CBC unremarkable. Coagulation profile normal findings. BMP unremarkable. Blood glucose 102. Magnesium 1.9. Liver profile normal findings. Troponin was negative at less than 0.012. TSH also normal findings at 4.580. CTA chest completed reporting no definite large/central pulmonary emboli with several distal subsegmental branches limited to diagnostic quality but no definite CT evidence for right heart strain and no evidence for focal airspace consolidation, pleural effusion, or pneumothorax. Patient admitted under our services with consultation to cardiology. Troponins trended overnight all negative at less than 0.012 x 3 draws. Urine hCG negative. Influenza A, influenza B, RSV, and COVID PCR negative. Echocardiogram was completed showing a preserved EF of 55 to 60% with no significant valvular or structural abnormalities reported. Stress echocardiogram was completed and negative showing normal stress echocardiogram. Patient cleared from cardiac perspective and is medically optimized for discharge at this time. Patient reports overnight when she had her palpitations she did some breathing exercises resulting in normalization of her heart rate. Patient to follow-up outpatient with PCP in 1 to 2 days and with leather goods ii assembler in 1 week. Physical exam: Vital signs reviewed and stable. General: Nontoxic, no distress and appears stated age. Derm: Skin warm and dry, normal coloration for ethnicity. Head: Atraumatic, normocephalic and symmetric. Eyes: EOM's intact, no lid lag, and anicteric sclera Mouth: no lip lesions, mucus membranes moist Cardiovascular: regular rate and rhythm with normal S1S2, no murmur, positive posterior tibial pulses bilaterally, and cap refill < 2 seconds. Lungs: Respirations even, regular, and unlabored on room air. Lungs CTA bilaterally, no rhonchi, no rales, no wheezing, and no accessory muscle usage. Abdominal: soft, nontender to palpation, no guarding, no appreciable organomegaly Ext: ROM intact. No gross muscle atrophy, no edema, no contractures Neuro: Speech clear, face symmetrical and CN II-XII grossly intact with no noted focal neuro deficits Psych: Alert and oriented to person, place, time, and situation. Appropriate and pleasant affect. A total of 33 minutes of time were spent preparing this complex discharge summary. Pt was discharged on 10/22/19 2:30 PM. Patient was seen independently by Nurse Practitioner. This document was prepared using [employer] dictation software. Please allow for errors in furniture dipper while rare they do occur. Isai Stoll NP rendered care for this patient independently, reviewed the findings and plan as documented in the note above. I did not physically speak with or examine the patient on this date. Patient Condition at Discharge: Stable Plan - Discharge Summary New Discharge Prescriptions: Continue buPROPion XL [Wellbutrin XL] 300 mg PO DAILY Fluticasone Nasal [place] [Flonase Nasal [place]] 2 spray EA NOSTRIL DAILY Cetirizine HCl [Zyrtec] 10 mg PO DAILY Discharge Medication List Cetirizine HCl [Zyrtec] 10 mg PO DAILY 10/15/24 [History] Fluticasone Nasal [place] [Flonase Nasal [place]] 2 spray EA NOSTRIL DAILY 10/15/24 [History] buPROPion XL [Wellbutrin XL] 300 mg PO DAILY 10/15/24 [History] Follow up Appointment(s)/Referral(s): Brant Suarez MD [Medical Doctor] - 1 Week Alan Ross MD [Primary Care Provider] - 1-2 days Patient Instructions/Handouts: Heart Palpitations (DC) Activity/Diet/Wound Care/Special Instructions: Activity: As tolerated. Take breaks as needed. Diet: Heart healthy diet. Special Instructions: Take all of your medications as directed and remember to keep all of your doctor's appointments and follow-up as needed. Thank you for allowing us to participate in your care, it was truly a pleasure having you for our patient!!! Discharge Disposition: HOME SELF-CARE
[2024-10-21 14:57] VITALS: BP 124/88; PULSE 102; TEMP 97.4
== END 2024-10-21 15:25 | disposition home or self-care (01) ==
LOC: EC 22:47 → 6NMEDSUR 10-20 01:06
PROVIDERS: ADMIT Internal Medicine; ATTEND Internal Medicine
DX: R00.0 Tachycardia, unspecified (principal); R00.2 Palpitations; R07.2 Precordial pain; R61 Generalized hyperhidrosis; F41.9 Anxiety disorder, unspecified; I10 Essential (primary) hypertension; Z79.899 Other long term (current) drug therapy; Z88.1 Allergy status to other antibiotic agents; Z88.8 Allergy status to other drugs, medicaments and biological substances; Z87.891 Personal history of nicotine dependence; Z11.52 Encounter for screening for COVID-19; Z11.59 Encounter for screening for other viral diseases
CPT/HCPCS: 96365; 96372 ×2; 99285; 36415; 93005; 93306; 93351; 84439; 80061; 80053; 80048; 84443 ×2; 83735 ×2; 84484 ×2; 85025 ×2; 85610; 85730; 81001; 81025; 83036; 87636; 71275; G0378 ×2; J1644 ×2; J3475; Q9967

== ENCOUNTER → 2024-11-18 | Outpatient (CLI) | payer BC ==
--- NOTE | 2024-11-19 08:07 | MM ---
Reason for Exam: Screening (asymptomatic). Last mammogram was performed 1 year(s) and 10 month(s) ago. Patient History: Menarche at age 12. Patient has no children. Hormonal Contraceptives for 7 years from age 18 until age 25. Risk Values: Rosa Isela 5 year model risk: 0.9%. NCI Lifetime model risk: 11.8%. Prior Study Comparison: 05/26/2021 Left Diagnostic Mammogram, [facility]. 12/15/2021 Bilateral MG 3D diag mammo w/cad SAM, [facility]. 02/03/2023 Bilateral MG 3D screening mammo w/cad, [facility]. Tissue Density: The breasts are heterogeneously dense, which may obscure small masses. Findings: Analyzed By CAD. Right breast: There is no suspicious group of microcalcifications or new suspicious mass. Left breast: There is no suspicious group of microcalcifications or new suspicious mass. Overall Assessment: Negative, BI-RAD 1 Management: Screening Mammogram of both breasts in [address] [facility] will attempt to contact patient to return for supplemental views and ultrasound if indicated. Patient should continue monthly self-breast exams. A clinical breast exam by your physician is recommended on an annual basis. This exam should not preclude additional follow-up of suspicious palpable abnormalities. Note on Rosa Isela scores and lifetime risk: 1. A Rosa Isela score greater than 3% is considered moderate risk. If this is the case, consider specialist referral to assess eligibility for a risk reducing agent. 2. If overall lifetime risk for the development of breast cancer is 20% or higher, the patient may qualify for future screening with alternating mammogram and breast MRI. [facility], , 11/19/2024 8:04 AM. Electronically signed and approved by: Lm Higginbotham DO
== END | disposition home or self-care (01) ==
LOC: RADMAMWWP 14:14
PROVIDERS: ATTEND Obstetrics & Gynecology
DX: Z12.31 Encounter for screening mammogram for malignant neoplasm of breast (principal); R92.333 Mammographic heterogeneous density, bilateral breasts; Z92.0 Personal history of contraception
CPT/HCPCS: 77063; 77067